=== PATIENT | female | born 1985 | race Caucasian/White ===

== ENCOUNTER 2016-10-17 12:05 | Emergency (ER) | payer OTHER ==
[~2016-10-17] VITALS: Ht 162.6 cm; Wt 93.6 kg
[2016-10-17 12:08] VITALS: TEMP 36.9; Ht 162.6 cm; Wt 93.6 kg
[2016-10-17] MEDS ORDERED: ONDANSETRON INJ 2 MG/ML 2 ML VIAL IV STA (12:44)
[2016-10-17] MEDS ORDERED: MoRPHine SULFATE 4 MG/ML 1 ML CARP\\VIAL IV STA (12:44)
[2016-10-17] MEDS ORDERED: SODIUM CHLORIDE 0.9% 1000ML 1,000 ML IV ONE (12:45)
[2016-10-17 13:54] LABS: BASO % 0.4 %; BASO ABS # 0.03 K/uL (0-0.2); COMPLETE YES; EOS % 2.7 %; HEMATOCRIT 35.7 % (37-47); IG% 0.2 %; LYMPH % 29.8 %; LYMPH ABS # 2.53 K/uL (1.2-3.4); MEAN CELL VOLUME 77.6 fL (80-100); MEAN CORPUSCULAR HEMOGLOBIN 25.4 pg (25-34); MEAN CORPUSCULAR HGB CONC 32.8 g/dl (32-36); MEAN PLATELET VOLUME 10.1 fL (7.4-10.4); MONO % 6.5 %; NEUT % 60.4 %; PLATELET COUNT 295 K/uL (130-400); WHITE BLOOD COUNT 8.48 K/uL (4.8-10.8)
[2016-10-17 14:23] LABS: BLOOD UREA NITROGEN 9 mg/dl (7-18); BUN/CREATININE RATIO 14.2 (10-20); CALCIUM 8.7 mg/dl (8.5-10.1); CARBON DIOXIDE 25 mmol/L (21-32); CHLORIDE 104 mmol/L (98-107); CREATININE 0.65 mg/dl (0.60-1.20); GLUCOSE 78 mg/dl (70-99); SODIUM 136 mmol/L (136-145)
[2016-10-17] MEDS ORDERED: ACETAMINOPHEN IV 650 MG in EMPTY BAG 0 ML IV ONE (14:30)
--- NOTE | 2016-10-17 17:39 | DIAGNOSTIC IMAGING REPORT ---
LIMITED (US) CLINICAL HISTORY: abd pain, pink vag discharge, pain TECHNIQUE: Ultrasound COMPARISON STUDY: None FINDINGS: 20 intrauterine . No significant cardiac activity is identified. Fetus a has an estimated gestational age of 7 weeks. Fetus B is estimated gestational age is 6 weeks 6 days. The maternal ovaries are unremarkable in appearance. Maximum dimension on the right is 2.8 cm in maximum linear dimension left 3.5 cm. Normal vascular flow is confirmed. IMPRESSION: 1. Twin intrauterine . 2. No cardiac activity is identified. 3. demise must be considered The above report was generated using voice recognition software. It may contain grammatical, syntax or spelling errors. Electronically signed by: Jethro Daniel M.D. 10/17/2016 5:37 PM Dictated Date/Time: 10/17/2016 5:32 PM
[2016-10-17 17:47] VITALS: BP 118/72
[2016-10-17] MEDS ORDERED: HYDR-5688 PO (18:09)
[2016-10-17 18:34] VITALS: PULSE 73; O2SAT 99
--- NOTE | 2016-10-17 22:49 | EMERGENCY ROOM VISIT NOTE ---
ED Visit Note First contact with patient: 12:30 Chief Complaint: Lower abdominal pain. History of Present Illness: Ms. Madrigal is a 31 year-old female who ambulates into the ED accompanied by male friend complaining of bilateral lower quadrant abdominal pain. Historically patient reports 5, para 2. Her last menstrual cycle was July 12 and she reports she took a home test on September 18 which was positive. She has not followed up with her APPLICATION PROGRAMMER ANALYST physician. Patient additionally reports she was seen at the [facility] ED last evening at 11 PM and reports an ultrasound showed a nonviable intrauterine with no heart activity. Should be noted that the patient primarily speaks Setswana and today she is here with an cake froster but last night a phone cake froster was used. According to the ED staff she was supposed to be seen by her APPLICATION PROGRAMMER ANALYST as they brought the patient and her boyfriend who is present with her today reports they gave her no discharge instructions and they did not know what to do. Patient reports approximately 3-4 weeks ago she started having moderate to severe abdominal cramping. This has been ongoing but not constant every day. Is located in the lower abdomen with prominence on the left. The pain waxes and wanes in intensity with the highest level rated 8/10. She has not been taken any medications. Associated with her pain she reports she has been nauseated and vomiting and 3 days before she came into the ED she noticed a mild pinkish discharge from her vagina but no bleeding. Additionally 2 days before she arrived in this emergency department she reports she had a fever at home of 101F. Currently she is rating her discomfort 6/10. Once again its located in the bilateral lower quadrants with prominence on the left. Her pain is nonradiating. She is not identified any aggravating or alleviating factors related to the pain. She has not had any medications for pain prior to arrival at the hospital. Associated with her pain she's been nauseated but has not vomited today. She denies fevers, chills, sweats, skin eruptions, skin color changes, upper respiratory tract symptoms, cough, wheezing, shortness of breath, upper abdominal pain, diarrhea, constipation, rectal bleeding, black/tarry stools, urinary symptoms, hematuria, vaginal bleeding, vaginal discharge, back/flank pain. Review of Systems: As noted above in history of present illness. All body systems were reviewed and found to be negative as noted above. Past Medical History: As previously noted and status post previous D&C, colposcopy, EGD and unspecified uterine laparoscopy. Current Medications: Patient denies. Allergies to Medications: Patient denies. Social History: Patient feels safe in her home environment; she denies tobacco use. Physical Examination: Vital Signs: Date Time Temp Pulse Resp B/P (MAP) Pulse Ox O2 Delivery O2 Flow Rate FiO2 10/17/16 18:34 73 16 99 10/17/16 17:47 69 18 118/72 100 Room Air 10/17/16 16:00 76 18 120/74 98 Room Air 10/17/16 14:28 71 16 115/58 100 Room Air 10/17/16 13:08 69 18 126/84 100 Room Air 10/17/16 12:08 36.9 77 22 129/87 97 Room Air GENERAL: 31-year-old female in mild to moderate distress due to pain, nontoxic- appearing, afebrile and hemodynamically stable. NEUROLOGICAL: Awake, alert and oriented to person, place and time. Answering questions appropriately and following commands. Normal gait. Good hand eye coordination. SKIN: Warm, dry and pink. No soft tissue eruptions or trauma noted. HEENT: Atraumatic and normocephalic. PERRL. Sclera white and conjunctiva pink. Oral cavity moist and pink. Pharynx is nonerythematous or edematous. Speech normal. No lymphadenopathy. Trachea midline. No jugular venous distention. BACK: No tenderness over the bony spine. No CVA tenderness. THORAX: Lungs sounds are clear to auscultation and equal bilaterally with symmetrical chest wall. No wheezing, rales or rhonchi. No crepitus, tenderness , subcutaneous air or deformities noted. HEART: Regular rate and rhythm. No gallops, rubs or murmurs are appreciated. ABDOMEN: Flat and soft with mild tenderness in the area of the uterus bilaterally. Positive bowel sounds in all quadrants. No guarding, rigidity or organomegaly. EXTREMITIES: Moves all extremities well on command and with purpose. All distal neurovascular statuses are intact and equal bilaterally. ED Course: Patient is assessed as noted above. Laboratory Testing: Test 10/17/16 13:27 Range/Units White Blood Count 8.48 4.8-10.8 K/uL Red Blood Count 4.60 4.2-5.4 M/uL Hemoglobin 11.7 12.0-16.0 g/dL Hematocrit 35.7 37-47 % Mean Corpuscular Volume 77.6 80-100 fL Mean Corpuscular Hemoglobin 25.4 25-34 pg Mean Corpuscular Hemoglobin Concent 32.8 32-36 g/dl Platelet Count 295 130-400 K/uL Mean Platelet Volume 10.1 7.4-10.4 fL Neutrophils (%) (Auto) 60.4 % Lymphocytes (%) (Auto) 29.8 % Monocytes (%) (Auto) 6.5 % Eosinophils (%) (Auto) 2.7 % Basophils (%) (Auto) 0.4 % Neutrophils # (Auto) 5.12 1.4-6.5 K/uL Lymphocytes # (Auto) 2.53 1.2-3.4 K/uL Monocytes # (Auto) 0.55 0.11-0.59 K/uL Eosinophils # (Auto) 0.23 0-0.5 K/uL Basophils # (Auto) 0.03 0-0.2 K/uL RDW Standard Deviation 45.6 36.4-46.3 fL RDW Coefficient of Variation 16.0 11.5-14.5 % Immature Granulocyte % (Auto) 0.2 % Immature Granulocyte # (Auto) 0.02 0.00-0.02 K/uL Sodium Level 136 136-145 mmol/L Potassium Level 3.5-5.1 mmol/L Chloride Level 104 98-107 mmol/L Carbon Dioxide Level 25 21-32 mmol/L Anion Gap 7.0 3-11 mmol/L Blood Urea Nitrogen 9 7-18 mg/dl Creatinine 0.65 0.60-1.20 mg/dl Est Creatinine Clear Calc Drug Dose 141.7 ml/min Estimated GFR () 139.1 Estimated GFR (Non- 120.0 BUN/Creatinine Ratio 14.2 10-20 Random Glucose 78 70-99 mg/dl Calcium Level 8.7 8.5-10.1 mg/dl Human Chorionic Gonadotropin, Quant 46410 mIU/mL Transvaginal Pelvic Ultrasound: Shows a twin intrauterine with no cardiac activity consistent with demise. Patient was hydrated with normal saline and she received 4 mg of morphine IV and 4 mg of Zofran initially for her symptoms. She did request additional pain medications later during her stay and was given 650 mg of acetaminophen IV. Patient was reassessed multiple times during her stay in the emergency department. Patient's case was reviewed with Dr. Raman; he agreed on diagnostic approach, treatment, disposition and plan. Patient's case was consulted with Liza Alfaro APPLICATION PROGRAMMER ANALYST; he recommended pain medications and office follow-up for possible medically induced or surgically induced D&C. Patient was educated about today's findings and instructed on her treatment plan ; she verbalized understanding and agreement with this plan. Clinical Impression: Abdominal pain. Twin demise. Decision-Making: Initially my differential diagnosis I considered miscarriage, appendicitis, ectopic , cystitis and other causes. Disposition: Patient discharged home in stable condition accompanied by multiple family member; prior to departure she was reassessed and subjectively reported she was pain-free. Plan: Patient was placed on a sliding pain scale of acetaminophen and [place]; she was given appropriate narcotic precautions and her name was checked in the state database and no red flags were noted. Patient was encouraged to follow-up with her APPLICATION PROGRAMMER ANALYST physician office in [place]. Patient was encouraged to go to the nearest ED for any uncontrolled pain, vaginal bleeding or any new/concerning symptoms.
== END 2016-10-17 18:38 | disposition home or self-care (01) ==
LOC: C.EDB 12:09
DX: R10.30 Lower abdominal pain, unspecified (principal); O03.9 Complete or unspecified spontaneous abortion without complication